=== PATIENT | female | born 2005 | race Caucasian/White ===

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

== ENCOUNTER → 2024-01-21 12:04 | Outpatient (REF) | payer BC, SELFPAY | LOC: HWRAD 12:04 | PROVIDERS: ATTENDING PHYSICIAN Physician Assistant | DX: R11.15 Cyclical vomiting syndrome unrelated to migraine (principal); R10.32 Left lower quadrant pain; R10.84 Generalized abdominal pain; R11.10 Vomiting, unspecified; R06.2 Wheezing | CPT/HCPCS: 71046; 74176 ==

== ENCOUNTER → 2024-07-31 07:47 | Outpatient (REF) | payer BC, SELFPAY | LOC: HWRAD 07:47 | PROVIDERS: ATTENDING PHYSICIAN Family Medicine | DX: R10.9 Unspecified abdominal pain (principal) | CPT/HCPCS: 76700 ==